=== PATIENT | female | born 1970 ===

== ENCOUNTER 2016-09-20 06:14 | Day surgery (SDC) | payer BC ==
[2016-09-20] VITALS (12 sets, daily range): BP systolic 120–148; BP diastolic 64–93
[~2016-09-20] VITALS: Ht 170.2 cm; Wt 71.7 kg
[~2016-09-20 06:14] MED LIST: NKM
[2016-09-20] MEDS ORDERED: cefOXitin Sod 2 GM in D5W 110 ML IVPB ONE (07:00)
[2016-09-20] MEDS ORDERED: cefOXitin 2gm Inj ONE (07:09)
[2016-09-20] MEDS ORDERED: Ropivacaine 5mg/ml Vial 20ml INJ ONE (07:09)
[2016-09-20] MEDS ORDERED: Tylenol #3 tab (300mg/30mg) ORAL PRN (07:30)
[2016-09-20] MEDS ORDERED: NS Irrig 1000ml IRRIG ONE (07:30)
[2016-09-20] MEDS ORDERED: Sterile Water Irrig 1000ml IRRIG ONE (07:30)
[2016-09-20] MEDS ORDERED: Propofol 10mg/ml 20ml IV ONE (07:30)
[2016-09-20] MEDS ORDERED: NS Irrig 1000ml ONE (07:30)
[2016-09-20] MEDS ORDERED: HYDROmorphone 1mg/ml Carpuject SUBQ PRN (07:30)
[2016-09-20] MEDS ORDERED: Zemuron 50mg/5ml Inj IV ONE (07:30)
[2016-09-20] MEDS ORDERED: Midazolam 2mg/2ml Inj ONE (07:30)
[2016-09-20] MEDS ORDERED: fentaNYL 100 mcg/2 mL IV ONE (07:30)
[2016-09-20] MEDS ORDERED: LR 1000ml ONE (07:30)
[2016-09-20] MEDS ORDERED: Ketorolac 30mg Inj ONE (07:30)
[2016-09-20] MEDS ORDERED: ProvayBlue 5mg/ml 10ml amp INJ ONE (07:30)
[2016-09-20] MEDS ORDERED: Morphine Sulfate 10mg/ml Inj ONE (07:30)
[2016-09-20] MEDS ORDERED: Norco 5mg/325mg tab ORAL PRN (07:30)
[2016-09-20] MEDS ORDERED: DiphenhydrAMINE 50mg/ml Inj IVP PRN (07:30)
[2016-09-20] MEDS ORDERED: Lidocaine 1% MPF 10mg/ml 5ml ONE (07:30)
[2016-09-20] MEDS ORDERED: D5 1/2NS 1,000 ML IV SCH (07:30)
--- NOTE | 2016-09-20 07:30 | Pre-Procedure Note/Attestation ---
Pre-Procedure Note/Attestation Complete Prior to Procedure Planned Procedure: not applicable Procedure Narrative: co2 laser pelviscopy, hysteroscopy dilation and curettage, possible ablation of endometriosis Indications for Procedure Pre-Operative Diagnosis: severe dysmenorhea, probable endometriosis Attestation I attest that I discussed the nature of the procedure; its benefits; risks and complications; and alternatives (and the risks and benefits of such alternatives ), prior to the procedure, with the patient (or the patient's legal apprenticeship representative). I attest that, if there was a reasonable possibility of needing a blood transfusion, the patient (or the patient's legal apprenticeship representative) was given the [place] [employer] [facility] [employer] [facility] standardized written summary, pursuant to the [place] Blood Safety Act ([place] Health and Safety Code # 1645, as amended). I attest that I re-evaluated the patient just prior to the surgery and that there has been no change in the patient's H&P, except as documented below: LINDSEY CROCKETT Sep 20, 2016 07:30
--- NOTE | 2016-09-20 08:37 | Anethesia Preoperative Eval ---
Anesthesia Pre-op PMH/ROS General Date of Evaluation: Sep 20, 2016 Time of Evaluation: 07:00 ASA Score: ASA 1 Mallampati Score Class I : Soft palate, uvula, fauces, pillars visible Class II: Soft palate, uvula, fauces visible Class III: Soft palate, base of uvula visible Class IV: Only hard plate visible Mallampati Classification: Class I Allergies: Coded Allergies: No Known Allergies (Unverified , 09/19/16) Anesthesia Pre-op Phys. Exam Physician Exam Last Vital Signs Date Time Temp Pulse Resp B/P Pulse Ox O2 Delivery O2 Flow Rate FiO2 09/20/16 07:11 98.1 94 20 147/93 100 Room Air Anesthesia Pre-op A/P Labs Urine Test Test 09/20/16 06:35 Urine HCG, Qualitative Negative Lauri Anand MD Sep 20, 2016 08:37
[2016-09-20] MEDS ORDERED: Morphine Sulfate 2mg/ml Inj IVP PRN (08:45)
[2016-09-20] MEDS ORDERED: Hydromorphone 0.5mg/0.5ml inj IVP PRN (08:45)
[2016-09-20] MEDS ORDERED: fentaNYL 100 mcg/2 mL IV PRN (08:45)
[2016-09-20] MEDS ORDERED: Ketorolac 30mg Inj IV PRN (08:45)
[2016-09-20] MEDS ORDERED: Midazolam 2mg/2ml Inj IVP PRN (08:45)
--- NOTE | 2016-09-20 09:43 | Brief Operative Note ---
Immediate Post Operative Note Operative Note Pre-op Diagnosis: severe dysmenorhea, probable endometriosis Procedure: Co2 laser pelviscopy, hysteroscopy dilation and curettage, ablation of endometriosis, adhesiolysis, enterolysis Post-op Diagnosis: same endometriosis adhesions between bowel and anterior abdominal wall Surgeon: faith Case Aide: abi Anesthesia: general Specimen: yes Complications: none Condition: stable Estimated Blood Loss: volume - 200cc Drains: none Implant(s) used?: No LINDSEY CROCKETT Sep 20, 2016 09:43
--- NOTE | 2016-09-20 11:31 | Operative Note - Dictated ---
DATE OF OPERATION: 09/20/2016 PREOPERATIVE DIAGNOSIS: Severe dysmenorrhea, probable endometriosis. POSTOPERATIVE DIAGNOSIS: Endometriosis, multiple adhesions between bowel and anterior abdominal wall. SURGEON: Daisha Black M.D. SCHOOL EXAMINER: Dave Ivan M.D. ANESTHESIOLOGIST: Lauri Anand M.D. ESTIMATED BLOOD LOSS: 200 mL. ANESTHESIA: General endotracheal. PROCEDURE IN DETAIL: After ensuring informed consent, the patient was taken to the operating room, where a general anesthesia was induced. The patient was placed in dorsal lithotomy position with legs up in Desmond stirrups. Weighted speculum was placed in the vagina. Cervix was dilated to an 8 Hegar dilator. Hysteroscope was placed inside the uterine cavity. Uterine cavity was distended with normal saline. Normal ostia were observed. Curettage was performed. Attention was turned to the abdomen where a small incision was made in the umbilicus after infiltration with local. Veress needle was placed inside the peritoneal cavity. Intraperitoneal placement was confirmed with low opening pressures. A 11 mm trocar was placed inside the peritoneal cavity. Intraperitoneal placement was confirmed with the camera. Suprapubic and left lateral trocars were placed under direct visualization after infiltration with local anesthetic. Pelvis was explored. It was even at first difficult to visualize the uterus because the bowel was adherent to both the uterus and pelvic and left pelvic sidewall. Using both CO2 laser as well as blunt dissection, the adhesions were lysed and bowel was retracted with a Trendelenburg and . Next, attention was turned to the pelvis where there were multiple adhesions between bilateral ovaries and pelvic sidewalls as well as bilateral ovaries and posterior uterus, and rectosigmoid and posterior uterus. These adhesions were lysed using a combination of cautery and a CO2 laser as well as blunt dissection. Both ovaries were freed completely and the cul-de-sac was created where there was none prior to the procedure. Next, excellent hemostasis was assured with bipolar cautery as both ovaries were bleeding. Next attention was turned to the upper abdomen where there was loops of bowel attached to the anterior abdominal wall. Again those were lysed using scissors, CO2 laser, and blunt dissection. Excellent hemostasis was assured again with bipolar cautery. The pelvis was copiously irrigated. Again excellent hemostasis was assured. All trocars were removed under direct visualization. The umbilical fascial incision was closed with 0 Vicryl. The skin was closed with 4-0 Monocryl, over all three incisions and Steri-Strips were placed on top. At the end of the procedure, all instrument and lap counts were correct x2. The patient was taken to the recovery area extubated and in stable condition. Daisha Black M.D. DR: BARTOLO JOB#: [id number] CC: JENNIFER
[2016-09-20 11:42] LABS: MEAN CORPUSCULAR HEMOGLOBIN 29.4 PG (27.0-31.0); MEAN CORPUSCULAR HGB CONC 32.8 G/DL (32.0-36.0); MEAN CORPUSCULAR VOLUME 90 FL (80-99); MEAN PLATELET VOLUME 6.2 FL (6.5-10.1); PLATELET COUNT 263 K/UL (150-450); RED BLOOD COUNT 5.03 M/UL (4.20-5.40); RED CELL DISTRIBUTION WIDTH 10.9 % (11.6-14.8); WHITE BLOOD COUNT 15.7 K/UL (4.8-10.8)
[2016-09-20 12:09] LABS: BAND NEUTROPHILS % (MANUAL) 2 % (0-8); LYMPHOCYTES % (MANUAL) 11 % (20-45); NEUTROPHILS % (MANUAL) 86 % (45-75); TOTAL CELLS COUNTED 100
[2016-09-20 12:10] LABS: BASOPHILS % (MANUAL) 0 % (0-2); EOSINOPHILS % (MANUAL) 0 % (0-3); PLATELET ESTIMATE ADEQUATE; PLATELET MORPHOLOGY NORMAL
== END 2016-09-20 13:55 | disposition home or self-care (01) ==
LOC: SUR 06:14
DX: N94.6 Dysmenorrhea, unspecified (principal); N80.3 Endometriosis of pelvic peritoneum; N73.6 Female pelvic peritoneal adhesions (postinfective)
CPT/HCPCS: 36415; 58558; 58662; 81025; 85007; 85025; J0694; J1200; J1885; J2250; J2270; J2704; J2795; J3010; J7120; 94003; 94150